=== PATIENT | male | born 1990 | race Caucasian/White ===

== ENCOUNTER 2017-03-23 12:47 | Inpatient (IN) | payer OTHER ==
[~2017-03-23] VITALS: Ht 175.2 cm; Wt 77.6 kg
[2017-03-23 12:53] VITALS: BP 140/90
[2017-03-23 13:23] LABS: BASO % 0.4 % (0.0-1.0); EOS # 0.2 10*3/uL (0.0-0.4); EOS % 2.7 % (1.0-4.0); HEMOGLOBIN 14.5 g/dl (14.0-18.0); LYMPH # 2.4 10*3/uL (1.3-4.4); LYMPH % 32.6 % (27.0-41.0); MEAN CELL VOLUME 85.1 fl (80.0-94.0); MEAN CORPUSCULAR HGB 28.7 pg (27.0-31.0); MEAN CORPUSCULAR HGB CONC 33.7 g/dl (33.0-37.0); MEAN PLATELET VOLUME 9.2 fl (9.6-12.3); MONO # 0.7 10*3/uL (0.1-1.0); MONO % 9.8 % (3.0-9.0); NEUT % 54.4 % (47.0-73.0); PLATELET COUNT AUTOMATED 183 10*3/uL (130-400); RED BLOOD COUNT 5.05 10*6/uL (4.50-5.90); RED CELL DISTRI WIDTH 12.4 % (0-14.5); WHITE BLOOD COUNT 7.3 10*3/uL (4.8-10.8)
[2017-03-23 13:27] LABS: BILIRUBIN NEGATIVE (NEGATIVE); BLOOD NEGATIVE (NEGATIVE); CLARITY CLOUDY (CLEAR); COLOR YELLOW (YELLOW); GLUCOSE NEGATIVE (NEGATIVE); KETONE NEGATIVE (NEGATIVE); LEUKO ESTERASE NEGATIVE (NEGATIVE); NITRITE NEGATIVE (NEGATIVE); SPECIFIC GRAVITY <= 1.005 (1.005-1.030); UROBILINOGEN 0.2 E.U./dl (0.2-1.0)
[2017-03-23 13:39] LABS: ALBUMIN 3.9 gm/dl (3.1-4.5); ALKALINE PHOSPHATASE 90 U/L (45-117); BUN 7 mg/dl (7-24); CHLORIDE 105 mmol/L (98-107); CREATININE 0.81 mg/dL (0.70-1.30); POTASSIUM 4.1 mmol/L (3.5-5.1); SGOT/AST 46 IU/L (3-35); SGPT/ALT 90 U/L (12-78); SODIUM 137 mmol/L (136-145); TOTAL PROTEIN 7.3 gm/dL (6.4-8.2)
[2017-03-23 13:43] LABS: URINE AMPHETAMINES < 1000 (1000ng/ml); URINE BARBITURATES < 200 (200ng/ml); URINE BENZODIAZEPINES < 200 (200ng/ml); URINE CANNABINOIDS (THC) > 50 (50ng/ml); URINE COCAINE > 300 (300ng/ml); URINE METHADONE < 300 (300ng/ml); URINE OPIATES > 300 (300ng/ml)
[2017-03-23 13:50] LABS: URINE PHENCYCLIDINE < 25 (25ng/ml)
[2017-03-23 14:01] VITALS: BP 138/86
[2017-03-23 17:29] VITALS: BP 142/80
[2017-03-23 20:00] VITALS: BP 133/78
[2017-03-24] VITALS: BP 104/64
[2017-03-24 03:45] VITALS: BP 115/65
[2017-03-24 08:00] VITALS: BP 132/83
[2017-03-24 12:00] VITALS: BP 123/71
[2017-03-24 16:00] VITALS: BP 125/70
[2017-03-24 20:00] VITALS: BP 123/74
[2017-03-25] VITALS: BP 118/68
[2017-03-25 08:00] VITALS: BP 118/78
[2017-03-25 12:00] VITALS: BP 127/70
[2017-03-25 16:00] VITALS: BP 124/73
[2017-03-25 20:00] VITALS: BP 129/84
[2017-03-26] VITALS: BP 117/68
[2017-03-26 08:00] VITALS: BP 134/79
[2017-03-26] MEDS ORDERED: ATARAX,VISTARIL50 MG PO (10:27)
[2017-03-26] MEDS ORDERED: ZOFRAN 4 MG ED2 TAB PO (10:27)
[2017-03-26] MEDS ORDERED: ROPINIROLE HYD0.5 MG PO (10:27)
== END 2017-03-26 10:33 | disposition home or self-care (01) | DRG 897 ==
LOC: ED 12:47 → 4E 13:11 → EDHOLD 13:11 → 4E 13:20
PROVIDERS: Internal Medicine Hospice and Palliative Medicine; Nurse Practitioner Family; ADMIT Internal Medicine
DX: F11.23 Opioid dependence with withdrawal (principal); F13.10 Sedative, hypnotic or anxiolytic abuse, uncomplicated; R79.89 Other specified abnormal findings of blood chemistry; F14.10 Cocaine abuse, uncomplicated; G25.81 Restless legs syndrome; F41.9 Anxiety disorder, unspecified; R74.0 Nonspecific elevation of levels of transaminase and lactic acid dehydrogenase [LDH]; F12.10 Cannabis abuse, uncomplicated; F17.210 Nicotine dependence, cigarettes, uncomplicated; Z71.6 Tobacco abuse counseling; Z82.49 Family history of ischemic heart disease and other diseases of the circulatory system